=== PATIENT | female | born 1940 | race Caucasian/White ===

== ENCOUNTER 2017-02-12 14:16 | Observation (INO) | payer OTHER ==
[~2017-02-12] VITALS: Ht 162.6 cm; Wt 79.4 kg
[2017-02-12 16:54] LABS: Basophils # (auto) 0.2 uL; Basophils % (auto) 0.9 % (0.0-2.0); Eosinophils # (auto) 0.3 uL; Eosinophils % (auto) 1.3 % (0.0-7.0); Hematocrit 45.2 % (36.0-46.0); Hemoglobin 14.5 g/dL (12.2-16.2); Lymphocytes # (auto) 4.8 uL; Lymphocytes % (auto) 23.4 % (10.0-50.0); Mean Corpuscular Hemoglobin 28.7 pg (28.0-32.0); Mean Corpuscular Hgb Conc. 32.1 g/dL (32.0-36.0); Mean Corpuscular Volume 89.3 fL (80.0-100.0); Mean Platelet Volume 9.1 fL (7.4-10.4); Monocytes # (auto) 1.2 uL; Monocytes % (auto) 5.9 % (0.0-12.0); Neutrophils % (auto) 68.5 % (37.0-80.0); Platelet Count (auto) 291 10^3/uL (140-450); Red Cell Distribution Width 13.6 % (11.6-16.0); SUSPECT VIEW TRANSMISSION; White Blood Cell 20.5 10^3/uL (4.4-10.8)
[2017-02-12 17:21] LABS: Albumin 3.2 g/dL (3.4-5.0); Alkaline Phosphatase 70 U/L (45-117); Anion Gap 11 (5-15); Aspartate Aminotransferase 13 U/L (15-37); BUN/Creatinine Ratio 20.2; Bilirubin, Total 0.6 mg/dL (0.2-1.0); Blood Urea Nitrogen 19 mg/dL (7-18); Calcium 8.4 mg/dL (8.5-10.1); Carbon Dioxide 25 mmol/L (21-32); Chloride 106 mmol/L (98-107); GFR African American 75 mL/min; GFR Non-African American 62 mL/min; Glucose 132 mg/dL (74-106); Magnesium 2.7 mg/dL (1.6-2.6); Potassium 3.3 mmol/L (3.5-5.1); Sodium 142 mmol/L (136-145); Total Protein 6.4 g/dL (6.4-8.2)
[2017-02-12 17:36] LABS: Prothrombin Time 10.8 sec (9.37-12.3)
[2017-02-12 18:17] LABS: Urine Bilirubin Negative (Negative); Urine Blood Negative /uL (Negative); Urine Color Yellow (Yellow); Urine Glucose Normal (Normal); Urine Hyaline Cast FEW /lpf (0 - 2); Urine Ketone Negative (Negative); Urine Mucus FEW (None Seen); Urine Nitrite Negative (Negative); Urine RBC 1 /hpf (0 - 4); Urine Squamous Epithelial Cell FEW /hpf (<5); Urine Urobilinogen Normal (Negative); Urine pH 5.5 (5.0-8.0)
[2017-02-12] MEDS ORDERED: cefTRIAXone 1GM/50ML D5W 50 ML IV ONE (18:30)
[2017-02-12] MEDS ORDERED: AZITHROMYCIN 500MG/D5W 250ML 250 ML IV ONE (18:30)
[2017-02-12] MEDS ORDERED: POTASSIUM CHL 20 Meq TABLET PO ONE (19:00)
[2017-02-12 19:26] LABS: Lactic Acid w/Reflex 3.4 mmol/L (0.4-2.0)
[2017-02-12 20:11] LABS: REFLEX LACTIC ACID YES OR NO YES
[2017-02-12] MEDS ORDERED: SODIUM CHLORIDE 0.9% 1,000 ML IV ONE ×3 (21:30)
[2017-02-12 22:25] VITALS: BP 171/75
== END 2017-02-12 23:05 | disposition short-term general hospital (02) | DRG 312 ==
LOC: ER 14:16 → OVERFLOW 15:41 → ER 23:05
PROVIDERS: ADMIT Family Medicine; ATTEND Family Medicine
DX: R55 Syncope and collapse (principal); J18.1 Lobar pneumonia, unspecified organism; A41.9 Sepsis, unspecified organism; E87.6 Hypokalemia; F32.9 Major depressive disorder, single episode, unspecified; R51 Headache; I10 Essential (primary) hypertension; Z82.49 Family history of ischemic heart disease and other diseases of the circulatory system; Z83.3 Family history of diabetes mellitus
CPT/HCPCS: 36415; 70450; 71010; 80053; 81001; 82962; 83605; 83735; 84484; 85025; 85610; 85730; 87040; 93005; 96365; 96366; 96367; 99291; G0378; J0456; J0696; J7030

== ENCOUNTER 2017-11-18 04:22 | Emergency (ER) | payer OTHER ==
[~2017-11-18] VITALS: Ht 154.9 cm; Wt 82.6 kg
[2017-11-18 04:55] LABS: Basophils # (auto) 0.1 uL; Basophils % (auto) 0.4 % (0.0-2.0); Eosinophils # (auto) 0.1 uL; Eosinophils % (auto) 0.5 % (0.0-7.0); Hematocrit 45.2 % (36.0-46.0); Lymphocytes % (auto) 6.1 % (10.0-50.0); Mean Corpuscular Hemoglobin 30.2 pg (28.0-32.0); Mean Corpuscular Hgb Conc. 33.2 g/dL (32.0-36.0); Mean Corpuscular Volume 90.9 fL (80.0-100.0); Monocytes # (auto) 0.7 uL; Monocytes % (auto) 3.8 % (0.0-12.0); Neutrophils # (auto) 15.4 uL; Neutrophils % (auto) 89.2 % (37.0-80.0); Platelet Count (auto) 340 10^3/uL (140-450); Red Blood Cells 4.97 10^6/uL (4.0-5.20); Red Cell Distribution Width 14.6 % (11.8-14.3); White Blood Cell 17.2 10^3/uL (4.4-10.8)
[2017-11-18 05:14] LABS: Albumin 3.6 g/dL (3.4-5.0); BUN/Creatinine Ratio 16.2; Calcium 8.9 mg/dL (8.5-10.1); Potassium 3.6 mmol/L (3.5-5.1)
[2017-11-18] MEDS ORDERED: SODIUM CHLORIDE 0.9% 1,000 ML IV ONE ×2 (05:15→08:15)
[2017-11-18] MEDS ORDERED: ONDANSETRON HCL 4 MG/2 ML VIAL IV ONE (05:15)
[2017-11-18 05:17] LABS: Bilirubin, Total 0.7 mg/dL (0.2-1.0); Total Protein 7.6 g/dL (6.4-8.2)
[2017-11-18 06:36] LABS: Urine Bacteria NONE SEEN /hpf (None Seen); Urine Blood Negative /uL (Negative); Urine Specific Gravity 1.005 (1.001-1.035); Urine WBC 1 /hpf (0 - 5)
[2017-11-18] MEDS ORDERED: LEVOFLOXACIN 750MG 150 ML IV SCH (07:30)
[2017-11-18] MEDS ORDERED: SODIUM CHLORIDE 0.9% 2,500 ML IV ONE (07:30)
[2017-11-18] MEDS ORDERED: diphenhdrAMINE HCL 50 MG/1 ML VL IV ONE ×2 (09:00)
[2017-11-18] MEDS ORDERED: VANCOMYCIN 1GM/250ML 250 ML IV SCH (10:00)
[2017-11-18 10:06] VITALS: BP 143/62
== END 2017-11-18 10:00 | disposition left against medical advice (07) ==
LOC: ER 04:25
DX: K52.9 Noninfective gastroenteritis and colitis, unspecified (principal); I10 Essential (primary) hypertension; Z83.3 Family history of diabetes mellitus; Z82.49 Family history of ischemic heart disease and other diseases of the circulatory system; Z85.828 Personal history of other malignant neoplasm of skin
CPT/HCPCS: 36415; 74176; 80053; 81001; 85025; 87086; 96361; 96365; 96366; 96368; 96375; 99285; J1200; J1956; J2405; J3370; J7030

== ENCOUNTER 2019-08-05 16:48 | Emergency (ER) | payer OTHER ==
[~2019-08-05] VITALS: Ht 154.9 cm; Wt 77.1 kg
[2019-08-05 17:38] LABS: Basophils # (auto) 0.1 uL; Basophils % (auto) 1.2 % (0.0-2.0); Eosinophils # (auto) 0.9 uL; Eosinophils % (auto) 8.8 % (0.0-7.0); Hematocrit 35.5 % (36.0-46.0); Lymphocytes # (auto) 0.7 uL; Lymphocytes % (auto) 7.4 % (10.0-50.0); Mean Corpuscular Hemoglobin 28.9 pg (28.0-32.0); Mean Corpuscular Hgb Conc. 33.8 g/dL (32.0-36.0); Mean Corpuscular Volume 85.6 fL (80.0-100.0); Monocytes # (auto) 0.8 uL; Monocytes % (auto) 7.8 % (0.0-12.0); Neutrophils # (auto) 7.5 uL; Neutrophils % (auto) 74.8 % (37.0-80.0); Platelet Count (auto) 341 10^3/uL (140-450); Red Blood Cells 4.15 10^6/uL (4.0-5.20); Red Cell Distribution Width 14.5 % (11.8-14.3); White Blood Cell 10.1 10^3/uL (4.4-10.8)
[2019-08-05 17:55] LABS: Albumin 3.1 g/dL (3.4-5.0); Anion Gap 6 (5-15); Calcium 8.3 mg/dL (8.5-10.1); Carbon Dioxide 28 mmol/L (21-32); Chloride 103 mmol/L (98-107); Glucose 116 mg/dL (74-106); Potassium 3.9 mmol/L (3.5-5.1); Sodium 137 mmol/L (136-145)
[2019-08-05 17:58] LABS: Alanine Aminotransferase 20 U/L (13-56); Aspartate Aminotransferase 16 U/L (15-37); BUN/Creatinine Ratio 11.1; Bilirubin, Total 0.5 mg/dL (0.2-1.0); Blood Urea Nitrogen 9 mg/dL (7-18); GFR African American 88 mL/min; GFR Non-African American 73 mL/min; Total Protein 6.7 g/dL (6.4-8.2)
[2019-08-05 18:00] LABS: Alkaline Phosphatase 104 U/L (45-117)
[2019-08-05 19:03] LABS: Urine Bacteria NONE SEEN /hpf (None Seen); Urine Blood Negative /uL (Negative); Urine Specific Gravity 1.015 (1.001-1.035); Urine WBC 3 /hpf (0 - 5)
[2019-08-05] MEDS ORDERED: FUROSEMIDE 20 MG/2 ML VIAL IV ONE (19:15)
[2019-08-05] MEDS ORDERED: cefTRIAXone 1GM/50ML D5W 50 ML IV ONE (20:15)
[2019-08-05 20:32] LABS: INR 1.1 (0.9-1.15); Partial Thromboplastin Time 32.5 sec (23.64-32.05)
[2019-08-05] MEDS ORDERED: APIX5TAB PO (21:33)
[2019-08-05] MEDS ORDERED: METO1TAB9 PO (21:33)
[2019-08-05] MEDS ORDERED: TRAM50TA2 PO (21:33)
[2019-08-05] MEDS ORDERED: ATOR20TA50 PO (21:33)
[2019-08-05] MEDS ORDERED: VENL37.572 PO (21:33)
[2019-08-05] MEDS ORDERED: BUME1TAB3 PO (21:33)
[2019-08-05] MEDS ORDERED: AMIO200T33 PO (21:33)
[2019-08-05 22:46] VITALS: BP 139/75
== END 2019-08-06 01:09 | disposition short-term general hospital (02) ==
LOC: ER 16:48
DX: R06.00 Dyspnea, unspecified (principal); I11.0 Hypertensive heart disease with heart failure; I50.9 Heart failure, unspecified; N39.0 Urinary tract infection, site not specified
CPT/HCPCS: 36415; 71045; 80053; 81001; 83880; 84484; 85025; 85379; 85610; 85730; 87086; 93005; 93970; 94761; 96365; 96375; 99285; J0696; J1940

== ENCOUNTER 2022-08-14 19:35 | Inpatient (IN) | payer OTHER ==
[~2022-08-14] VITALS: Ht 157.5 cm; Wt 81.9 kg
[~2022-08-14 19:35] MED LIST: AMIO200T33 PO; APIX5TAB PO; ATOR20TA50 PO; BUME1TAB3 PO; METO1TAB9 PO; TRAM50TA2 PO; VENL37.572 PO
[2022-08-14 20:19] LABS: Basophils # (auto) 0.1 10 ^3/uL (0-0.2); Eosinophils # (auto) 0.3 10 ^3/uL (0-0.8); Eosinophils % (auto) 5.1 % (0.0-7.0); Hematocrit 37.6 % (36.0-46.0); Hemoglobin 11.8 g/dL (12.2-16.2); Lymphocytes # (auto) 1.4 10 ^3/uL (0.4-5.4); Lymphocytes % (auto) 21.5 % (10.0-50.0); Mean Corpuscular Hemoglobin 27.2 pg (28.0-32.0); Mean Corpuscular Hgb Conc. 31.4 g/dL (32.0-36.0); Mean Corpuscular Volume 86.5 fL (80.0-100.0); Monocytes % (auto) 15.1 % (0.0-12.0); Neutrophils # (auto) 3.7 10 ^3/uL (1.6-8.6); Neutrophils % (auto) 57.3 % (37.0-80.0); Nucleated Red Blood Cells % 0.2 %; Red Blood Cells 4.35 10^6/uL (4.0-5.20); Red Cell Distribution Width 15.9 % (11.8-14.3); White Blood Cell 6.5 10^3/uL (4.4-10.8)
[2022-08-14 20:38] LABS: Albumin 3.1 g/dL (3.4-5.0); Calcium 8.5 mg/dL (8.5-10.1)
[2022-08-14 20:41] LABS: Bilirubin, Total 1.2 mg/dL (0.2-1.0); Total Protein 6.2 g/dL (6.4-8.2)
[2022-08-14] MEDS ORDERED: dilTIAZem 25 MG/5 ML VIAL IV ONE (20:45)
[2022-08-14] MEDS ORDERED: SODIUM CHLORIDE 0.9% 500 ML IV ONE (20:45)
[2022-08-14] MEDS ORDERED: FUROSEMIDE 40 MG/4 ML VIAL IV ONE (21:00)
[2022-08-14] MEDS ORDERED: dilTIAZem HCL 180MG ER CAP PO ONE (22:15)
[2022-08-14 22:49] LABS: Urine Bacteria FEW /hpf (None Seen); Urine Blood Negative /uL (Negative); Urine Hyaline Cast MOD /lpf (0 - 2); Urine Mucus FEW (None Seen); Urine Specific Gravity 1.011 (1.001-1.035); Urine WBC <1 /hpf (0 - 5)
[2022-08-15] VITALS (55 sets, daily range): BP systolic 98–145; BP diastolic 38–76
[2022-08-15] MEDS ORDERED: dilTIAZem 125mg/125ml BAG KIT 125 ML IV ONE (01:00)
[2022-08-15] MEDS ORDERED: ONDANSETRON HCL 4 MG/2 ML VIAL IV PRN (01:45)
[2022-08-15] MEDS ORDERED: ACETAMINOPHEN 325 MG TAB PO PRN (01:45)
[2022-08-15] MEDS ORDERED: NITROGLYCERIN 0.4 MG SL TAB SL PRN (01:45)
[2022-08-15] MEDS ORDERED: MORPHINE SULFATE INJ 2 MG/ml SYRG IV PRN (01:45)
[2022-08-15] MEDS: dilTIAZem 125mg/125ml BAG KIT 100 ML IV SCH ×2 (01:50→10:47)
[2022-08-15] MEDS: FUROSEMIDE 20 MG/2 ML VIAL IV SCH ×2 (06:04→17:06)
[2022-08-15] MEDS ORDERED: DABIGATRAN 75 MG CAP PO SCH (10:00)
[2022-08-15] MEDS ORDERED: PANTOPRAZOLE 40 MG TAB PO SCH (10:00)
[2022-08-15] MEDS ORDERED: APIXABAN 5 MG TAB PO SCH (10:00)
[2022-08-15] MEDS ORDERED: ISOSORBIDE MONONITRATE ER 60 MG TAB PO SCH (10:00)
[2022-08-15] MEDS ORDERED: dilTIAZem HCL 180MG ER CAP PO SCH (10:00)
[2022-08-15] MEDS: HYDROcodone-ACET 5/325MG TAB PO PRN ×2 (10:15→18:56)
[2022-08-15] MEDS ORDERED: AMIODARONE HCL 200 MG TAB PO ONE (14:00)
[2022-08-15] MEDS ORDERED: VENLAFAXINE HCL 37.5mg XR cap PO ONE (14:00)
[2022-08-15] MEDS ORDERED: METOPROLOL TARTRATE 50 MG TAB PO ONE (14:00)
[2022-08-15] MEDS ORDERED: DILT60TA PO (15:44)
[2022-08-15] MEDS ORDERED: ISOS1TAB28 PO (15:56)
[2022-08-15] MEDS ORDERED: BISO1TAB17 PO (15:56)
[2022-08-15] MEDS ORDERED: TORS10TA12 PO (15:56)
[2022-08-15] MEDS ORDERED: TEMA15CA2 PO (15:56)
[2022-08-15] MEDS ORDERED: POTA10TA51 PO (15:56)
[2022-08-15] MEDS ORDERED: HYDR1TAB97 PO (15:56)
[2022-08-15] MEDS ORDERED: VENL1TAB97 PO (15:56)
[2022-08-15] MEDS ORDERED: DABI150C5 PO (15:56)
[2022-08-15] MEDS: ATORVASTATIN 20 MG TAB PO SCH (21:51)
[2022-08-15] MEDS: AMIODARONE HCL 200 MG TAB PO SCH (21:51)
[2022-08-15] MEDS: APIXABAN 5 MG TAB PO SCH (21:51)
[2022-08-15] MEDS: TEMAZEPAM 15 MG CAP PO PRN (21:53)
[2022-08-15] MEDS ORDERED: ATORVASTATIN 20 MG TAB PO SCH (22:00)
[2022-08-16] VITALS (39 sets, daily range): BP systolic 97–134; BP diastolic 48–81
[2022-08-16] MEDS: METOPROLOL TARTRATE 50 MG TAB PO SCH ×3 (01:02→22:21)
[2022-08-16 04:12] LABS: Albumin 2.5 g/dL (3.4-5.0); Potassium 3.2 mmol/L (3.5-5.1)
[2022-08-16 04:14] LABS: BUN/Creatinine Ratio 14.9
[2022-08-16 04:21] LABS: Basophils # (auto) 0 10 ^3/uL (0-0.2); Basophils % (auto) 0.6 % (0.0-2.0); Eosinophils # (auto) 0.6 10 ^3/uL (0-0.8); Eosinophils % (auto) 8.6 % (0.0-7.0); Hematocrit 33.1 % (36.0-46.0); Hemoglobin 10.9 g/dL (12.2-16.2); Lymphocytes # (auto) 1.3 10 ^3/uL (0.4-5.4); Mean Corpuscular Hemoglobin 27.9 pg (28.0-32.0); Mean Corpuscular Hgb Conc. 32.8 g/dL (32.0-36.0); Monocytes # (auto) 1.1 10 ^3/uL (0-1.3); Monocytes % (auto) 15.6 % (0.0-12.0); Neutrophils % (auto) 56.2 % (37.0-80.0); Nucleated Red Blood Cells % 0.1 %; Red Blood Cells 3.89 10^6/uL (4.0-5.20); Red Cell Distribution Width 15.5 % (11.8-14.3)
[2022-08-16 04:26] LABS: Total Protein 5.2 g/dL (6.4-8.2)
[2022-08-16] MEDS: FUROSEMIDE 20 MG/2 ML VIAL IV SCH (06:33)
[2022-08-16] MEDS: VENLAFAXINE HCL 37.5mg XR cap PO SCH (09:00)
[2022-08-16] MEDS: AMIODARONE HCL 200 MG TAB PO SCH ×2 (09:01→22:20)
[2022-08-16] MEDS: APIXABAN 5 MG TAB PO SCH (09:02)
[2022-08-16] MEDS: HYDROcodone-ACET 5/325MG TAB PO PRN ×2 (10:50→20:10)
[2022-08-16] MEDS ORDERED: POTASSIUM CHL 20 Meq TABLET PO ONE (15:00)
[2022-08-16] MEDS ORDERED: METOPROLOL TARTRATE 50 MG TAB PO ONE (15:00)
[2022-08-16] MEDS: DABIGATRAN 75 MG CAP PO SCH (22:18)
[2022-08-16] MEDS: TEMAZEPAM 15 MG CAP PO PRN (22:19)
[2022-08-16] MEDS: ATORVASTATIN 20 MG TAB PO SCH (22:19)
[2022-08-17 05:00] VITALS: BP 129/73
[2022-08-17] MEDS: HYDROcodone-ACET 5/325MG TAB PO PRN ×2 (06:04→14:16)
[2022-08-17 06:37] LABS: Basophils # (auto) 0.1 10 ^3/uL (0-0.2); Basophils % (auto) 0.6 % (0.0-2.0); Eosinophils # (auto) 0.7 10 ^3/uL (0-0.8); Eosinophils % (auto) 7.3 % (0.0-7.0); Hematocrit 37.3 % (36.0-46.0); Hemoglobin 12.2 g/dL (12.2-16.2); Lymphocytes # (auto) 1.5 10 ^3/uL (0.4-5.4); Lymphocytes % (auto) 15.5 % (10.0-50.0); Mean Corpuscular Hgb Conc. 32.7 g/dL (32.0-36.0); Mean Corpuscular Volume 85.6 fL (80.0-100.0); Monocytes # (auto) 1.2 10 ^3/uL (0-1.3); Monocytes % (auto) 12.3 % (0.0-12.0); Neutrophils # (auto) 6.1 10 ^3/uL (1.6-8.6); Neutrophils % (auto) 64.3 % (37.0-80.0); Red Blood Cells 4.35 10^6/uL (4.0-5.20); Red Cell Distribution Width 15.4 % (11.8-14.3); White Blood Cell 9.5 10^3/uL (4.4-10.8)
[2022-08-17 06:44] LABS: Calcium 8.6 mg/dL (8.5-10.1); Potassium 3.2 mmol/L (3.5-5.1)
[2022-08-17 07:00] LABS: BUN/Creatinine Ratio 16.4
[2022-08-17 09:00] VITALS: BP 109/52
[2022-08-17] MEDS: TORSEMIDE 20 MG TAB PO SCH (10:23)
[2022-08-17] MEDS: AMIODARONE HCL 200 MG TAB PO SCH (10:24)
[2022-08-17] MEDS: POTASSIUM CHL 20 Meq TABLET PO SCH (10:24)
[2022-08-17] MEDS: VENLAFAXINE HCL 37.5mg XR cap PO SCH (10:24)
[2022-08-17] MEDS: DABIGATRAN 75 MG CAP PO SCH ×2 (10:26→22:12)
[2022-08-17] MEDS: METOPROLOL TARTRATE 50 MG TAB PO SCH ×2 (10:26→22:11)
[2022-08-17 13:00] VITALS: BP 122/82
[2022-08-17] MEDS ORDERED: POTASSIUM CHL 20 Meq TABLET PO ONE (13:00)
[2022-08-17 17:00] VITALS: BP 113/42
[2022-08-17] MEDS ORDERED: AMIODARONE HCL 200 MG TAB PO ONE ×2 (18:45→20:45)
[2022-08-17] MEDS: ATORVASTATIN 20 MG TAB PO SCH (22:09)
[2022-08-17] MEDS: TEMAZEPAM 15 MG CAP PO PRN (22:12)
[2022-08-18 00:20] VITALS: BP 130/68
[2022-08-18] MEDS: HYDROcodone-ACET 5/325MG TAB PO PRN ×3 (00:39→18:55)
[2022-08-18] MEDS ORDERED: MORPHINE SULFATE INJ 2 MG/ml SYRG IV ONE (02:30)
[2022-08-18 05:44] VITALS: BP 106/58
[2022-08-18 08:30] VITALS: BP 122/47
[2022-08-18 09:39] VITALS: BP 122/47
[2022-08-18] MEDS ORDERED: AMIODARONE HCL 200 MG TAB PO SCH (10:00)
[2022-08-18] MEDS: VENLAFAXINE HCL 37.5mg XR cap PO SCH (10:11)
[2022-08-18] MEDS: POTASSIUM CHL 20 Meq TABLET PO SCH (10:11)
[2022-08-18] MEDS: TORSEMIDE 20 MG TAB PO SCH (10:59)
[2022-08-18] MEDS: DABIGATRAN 75 MG CAP PO SCH ×3 (10:59→23:48)
[2022-08-18] MEDS ORDERED: dilTIAZem 120MG ER CAP PO ONE (12:00)
[2022-08-18 12:50] VITALS: BP 97/47
[2022-08-18] MEDS: METOPROLOL TARTRATE 50 MG TAB PO SCH (12:52)
[2022-08-18 16:58] LABS: Urine Bacteria FEW /hpf (None Seen); Urine Blood Negative /uL (Negative); Urine Hyaline Cast FEW /lpf (0 - 2); Urine Specific Gravity 1.009 (1.001-1.035); Urine WBC 51 /hpf (0 - 5)
[2022-08-18 17:00] VITALS: BP 111/63
[2022-08-18] MEDS: MAGNESIUM OXIDE 400 MG TAB PO SCH (22:32)
[2022-08-18] MEDS: SOTALOL HCL 80 MG TAB PO SCH (22:32)
[2022-08-18] MEDS: ATORVASTATIN 20 MG TAB PO SCH (22:33)
[2022-08-18] MEDS: TEMAZEPAM 15 MG CAP PO PRN (22:33)
[2022-08-18] MEDS: DABIGATRAN 75 MG CAP PO ONE ×2 (22:49→23:01)
[2022-08-19 00:14] VITALS: BP 102/54
[2022-08-19 06:00] VITALS: BP 114/45
[2022-08-19 06:35] LABS: BUN/Creatinine Ratio 19.4; Calcium 8.6 mg/dL (8.5-10.1); Potassium 3.7 mmol/L (3.5-5.1)
[2022-08-19 09:20] VITALS: BP 123/55
[2022-08-19] MEDS: VENLAFAXINE HCL 37.5mg XR cap PO SCH (11:02)
[2022-08-19] MEDS: DABIGATRAN 75 MG CAP PO SCH ×2 (11:03→21:17)
[2022-08-19] MEDS: HYDROcodone-ACET 5/325MG TAB PO PRN ×2 (11:04→18:44)
[2022-08-19] MEDS: SOTALOL HCL 80 MG TAB PO SCH ×2 (11:05→21:18)
[2022-08-19] MEDS: POTASSIUM CHL 20 Meq TABLET PO SCH (11:06)
[2022-08-19] MEDS: dilTIAZem 120MG ER CAP PO SCH (11:07)
[2022-08-19] MEDS: TORSEMIDE 20 MG TAB PO SCH (11:09)
[2022-08-19] MEDS: MAGNESIUM OXIDE 400 MG TAB PO SCH ×2 (11:10→21:19)
[2022-08-19 13:00] VITALS: BP 108/50
[2022-08-19] MEDS: cefTRIAXone 1GM/50ML D5W 50 ML IV SCH (15:08)
[2022-08-19 16:30] VITALS: BP 116/68
[2022-08-19] MEDS: TEMAZEPAM 15 MG CAP PO PRN (21:19)
[2022-08-19] MEDS: ATORVASTATIN 20 MG TAB PO SCH (21:19)
[2022-08-19 22:01] VITALS: BP 109/54
[2022-08-20] MEDS: HYDROcodone-ACET 5/325MG TAB PO PRN ×2 (03:47→14:08)
[2022-08-20 05:00] VITALS: BP 130/89
[2022-08-20 08:00] VITALS: BP 115/71
[2022-08-20] MEDS: cefTRIAXone 1GM/50ML D5W 50 ML IV SCH (09:29)
[2022-08-20] MEDS: SOTALOL HCL 80 MG TAB PO SCH ×3 (09:30→21:22)
[2022-08-20] MEDS: TORSEMIDE 20 MG TAB PO SCH (09:31)
[2022-08-20] MEDS: dilTIAZem 120MG ER CAP PO SCH (09:31)
[2022-08-20] MEDS: POTASSIUM CHL 20 Meq TABLET PO SCH (09:32)
[2022-08-20] MEDS: VENLAFAXINE HCL 37.5mg XR cap PO SCH (09:32)
[2022-08-20] MEDS: MAGNESIUM OXIDE 400 MG TAB PO SCH ×2 (09:34→21:23)
[2022-08-20] MEDS: DABIGATRAN 75 MG CAP PO SCH ×2 (09:35→21:24)
[2022-08-20 12:00] VITALS: BP 107/64
[2022-08-20] MEDS ORDERED: DOCUSATE SOD 100 MG CAP PO ONE (12:30)
[2022-08-20] MEDS ORDERED: SODIUM CHLORIDE 0.9% 500 ML IV ONE (14:40)
[2022-08-20 16:00] VITALS: BP 110/64
[2022-08-20] MEDS: ATORVASTATIN 20 MG TAB PO SCH (21:23)
[2022-08-20] MEDS: TEMAZEPAM 15 MG CAP PO PRN (21:39)
[2022-08-20 22:00] VITALS: BP 117/73
[2022-08-21] MEDS: HYDROcodone-ACET 5/325MG TAB PO PRN ×3 (00:07→16:28)
[2022-08-21 05:00] VITALS: BP 116/67
[2022-08-21 06:08] LABS: BUN/Creatinine Ratio 24.2; Calcium 8.2 mg/dL (8.5-10.1); Potassium 3.6 mmol/L (3.5-5.1)
[2022-08-21 08:00] VITALS: BP 120/58
[2022-08-21] MEDS: cefTRIAXone 1GM/50ML D5W 50 ML IV SCH (09:05)
[2022-08-21] MEDS: POTASSIUM CHL 20 Meq TABLET PO SCH (09:06)
[2022-08-21] MEDS: VENLAFAXINE HCL 37.5mg XR cap PO SCH (09:07)
[2022-08-21] MEDS: dilTIAZem 120MG ER CAP PO SCH (09:10)
[2022-08-21] MEDS: MAGNESIUM OXIDE 400 MG TAB PO SCH ×2 (09:54→21:44)
[2022-08-21] MEDS: SOTALOL HCL 80 MG TAB PO SCH ×2 (09:55→21:46)
[2022-08-21] MEDS: TORSEMIDE 20 MG TAB PO SCH (10:00)
[2022-08-21] MEDS: DABIGATRAN 75 MG CAP PO SCH ×2 (10:58→21:44)
[2022-08-21 12:00] VITALS: BP 103/62
[2022-08-21] MEDS: CALCIUM CARB 500 MG CHEW TAB PO PRN (13:15)
[2022-08-21 16:00] VITALS: BP_SYST 143; BP_SYST 90; BP_DIAS 40; BP_DIAS 66
[2022-08-21] MEDS: TEMAZEPAM 15 MG CAP PO PRN (21:44)
[2022-08-21] MEDS: ATORVASTATIN 20 MG TAB PO SCH (21:44)
[2022-08-21 22:00] VITALS: BP 109/72
[2022-08-22 05:00] VITALS: BP 117/52
[2022-08-22 08:10] VITALS: BP 127/72
[2022-08-22] MEDS: cefTRIAXone 1GM/50ML D5W 50 ML IV SCH (09:27)
[2022-08-22] MEDS: SOTALOL HCL 80 MG TAB PO SCH ×2 (09:29→21:41)
[2022-08-22] MEDS: POTASSIUM CHL 20 Meq TABLET PO SCH (09:30)
[2022-08-22] MEDS: dilTIAZem 120MG ER CAP PO SCH ×2 (09:32→21:40)
[2022-08-22] MEDS: TORSEMIDE 20 MG TAB PO SCH (09:32)
[2022-08-22] MEDS: VENLAFAXINE HCL 37.5mg XR cap PO SCH (09:32)
[2022-08-22] MEDS: MAGNESIUM OXIDE 400 MG TAB PO SCH ×2 (09:33→21:40)
[2022-08-22] MEDS: DABIGATRAN 75 MG CAP PO SCH ×2 (09:33→21:42)
[2022-08-22] MEDS ORDERED: DOCUSATE SOD 100 MG CAP PO ONE (11:45)
[2022-08-22 12:10] VITALS: BP 124/81
[2022-08-22] MEDS: HYDROcodone-ACET 5/325MG TAB PO PRN ×2 (13:52→23:13)
[2022-08-22] MEDS: LACTULOSE 20Gm/30ML SOLN PO ONE (15:11)
[2022-08-22 16:10] VITALS: BP 117/60
[2022-08-22] MEDS: ATORVASTATIN 20 MG TAB PO SCH (21:40)
[2022-08-22] MEDS: TEMAZEPAM 15 MG CAP PO PRN (21:41)
[2022-08-22 21:56] VITALS: BP 134/74
[2022-08-22] MEDS: CALCIUM CARB 500 MG CHEW TAB PO PRN (23:14)
[2022-08-23 04:41] VITALS: BP 123/56
[2022-08-23] MEDS: cefTRIAXone 1GM/50ML D5W 50 ML IV SCH (08:30)
[2022-08-23] MEDS: VENLAFAXINE HCL 37.5mg XR cap PO SCH (08:31)
[2022-08-23] MEDS: MAGNESIUM OXIDE 400 MG TAB PO SCH ×2 (08:31→21:35)
[2022-08-23] MEDS: POTASSIUM CHL 20 Meq TABLET PO SCH (08:33)
[2022-08-23] MEDS: dilTIAZem 120MG ER CAP PO SCH ×2 (08:33→21:35)
[2022-08-23] MEDS: SOTALOL HCL 80 MG TAB PO SCH ×2 (08:34→21:34)
[2022-08-23 08:47] VITALS: BP 133/68
[2022-08-23] MEDS: TORSEMIDE 20 MG TAB PO SCH (08:52)
[2022-08-23] MEDS: DABIGATRAN 75 MG CAP PO SCH ×2 (08:53→21:33)
[2022-08-23 13:10] VITALS: BP 143/59
[2022-08-23] MEDS: SILDENAFIL CITRATE 20 MG TAB PO SCH ×2 (13:49→20:43)
[2022-08-23] MEDS: HYDROcodone-ACET 5/325MG TAB PO PRN (16:05)
[2022-08-23 17:39] VITALS: BP 103/61
[2022-08-23] MEDS: TEMAZEPAM 15 MG CAP PO PRN (21:33)
[2022-08-23] MEDS: ATORVASTATIN 20 MG TAB PO SCH (21:34)
[2022-08-23] MEDS: CALCIUM CARB 500 MG CHEW TAB PO PRN (21:52)
[2022-08-24] MEDS: HYDROcodone-ACET 5/325MG TAB PO PRN ×2 (01:13→11:52)
[2022-08-24 05:15] VITALS: BP 102/46
[2022-08-24] MEDS: DABIGATRAN 75 MG CAP PO SCH (09:34)
[2022-08-24] MEDS: cefTRIAXone 1GM/50ML D5W 50 ML IV SCH (09:34)
[2022-08-24] MEDS: dilTIAZem 120MG ER CAP PO SCH (09:35)
[2022-08-24] MEDS: VENLAFAXINE HCL 37.5mg XR cap PO SCH (09:36)
[2022-08-24] MEDS: POTASSIUM CHL 20 Meq TABLET PO SCH (09:36)
[2022-08-24] MEDS: SILDENAFIL CITRATE 20 MG TAB PO SCH ×2 (09:36→14:00)
[2022-08-24] MEDS: TORSEMIDE 20 MG TAB PO SCH (09:36)
[2022-08-24] MEDS: MAGNESIUM OXIDE 400 MG TAB PO SCH (09:36)
[2022-08-24] MEDS: SOTALOL HCL 80 MG TAB PO SCH (09:36)
[2022-08-24 09:46] VITALS: BP 114/55
[2022-08-24] MEDS ORDERED: SILD20TA PO (11:44)
[2022-08-24] MEDS ORDERED: SOTA80TA20 PO (11:44)
[2022-08-24 15:12] VITALS: BP 114/55
== END 2022-08-24 16:10 | disposition home or self-care (01) | DRG 291 ==
LOC: ER 19:36 → ICU WEST 08-15 01:43 → TELE-WESTW 08-15 03:10
PROVIDERS: ADMIT Nurse Practitioner; ATTEND Internal Medicine
DX: I11.0 Hypertensive heart disease with heart failure (principal); I50.43 Acute on chronic combined systolic (congestive) and diastolic (congestive) heart failure; J96.00 Acute respiratory failure, unspecified whether with hypoxia or hypercapnia; D68.69 Other thrombophilia; N39.0 Urinary tract infection, site not specified; I48.0 Paroxysmal atrial fibrillation; E66.9 Obesity, unspecified; I27.21 Secondary pulmonary arterial hypertension; F32.A Depression, unspecified; E78.5 Hyperlipidemia, unspecified; E87.6 Hypokalemia; Z20.822 Contact with and (suspected) exposure to COVID-19; I25.10 Atherosclerotic heart disease of native coronary artery without angina pectoris; I27.20 Pulmonary hypertension, unspecified; Z68.32 Body mass index [BMI] 32.0-32.9, adult; Z88.0 Allergy status to penicillin; Z88.8 Allergy status to other drugs, medicaments and biological substances
CPT/HCPCS: 36415; 71045; 80048; 80053; 81001; 83880; 84484; 85025; 87081; 87426; 93005; 93306; 93970; 96365; 96375; 97110; 97116; 97163; 97530; 99291; G0378; J0696

== ENCOUNTER 2023-02-25 19:49 | Emergency (ER) | payer OTHER ==
[~2023-02-25] VITALS: Ht 154.9 cm; Wt 75.0 kg
[~2023-02-25 19:49] MED LIST changes: -AMIO200T33 PO; -APIX5TAB PO; -BUME1TAB3 PO; +DABI150C5 PO; +DILT60TA PO; +ISOS1TAB28 PO; -METO1TAB9 PO; +POTA10TA51 PO; +SILD20TA PO; +SOTA80TA20 PO; +TEMA15CA2 PO; +TORS10TA12 PO; +VENL1TAB97 PO
[2023-02-25 21:23] LABS: Basophils # (auto) 0.1 10 ^3/uL (0-0.2); Basophils % (auto) 0.6 % (0.0-2.0); Eosinophils # (auto) 0.1 10 ^3/uL (0-0.8); Eosinophils % (auto) 0.5 % (0.0-7.0); Hematocrit 38.2 % (36.0-46.0); Lymphocytes # (auto) 1.6 10 ^3/uL (0.4-5.4); Lymphocytes % (auto) 13.5 % (10.0-50.0); Mean Corpuscular Hemoglobin 30.8 pg (28.0-32.0); Mean Corpuscular Hgb Conc. 33.9 g/dL (32.0-36.0); Mean Corpuscular Volume 90.8 fL (80.0-100.0); Monocytes # (auto) 0.9 10 ^3/uL (0-1.3); Monocytes % (auto) 7.6 % (0.0-12.0); Neutrophils % (auto) 77.8 % (37.0-80.0); Nucleated Red Blood Cells % 0.2 %; Red Blood Cells 4.21 10^6/uL (4.0-5.20); Red Cell Distribution Width 15.4 % (11.8-14.3); White Blood Cell 11.6 10^3/uL (4.4-10.8)
[2023-02-25 21:33] LABS: INR 1.27 (0.9-1.15); Partial Thromboplastin Time 42.3 sec (24.6-33.4)
[2023-02-25 22:03] LABS: BUN/Creatinine Ratio 28.2 (10.0-20.0); Potassium 3.6 mmol/L (3.5-5.1)
[2023-02-25 22:04] LABS: Albumin 2.8 g/dL (3.4-5.0); Bilirubin, Total 0.5 mg/dL (0.2-1.0); Calcium 8.4 mg/dL (8.5-10.1); Magnesium 2.2 mg/dL (1.6-2.6)
[2023-02-26] MEDS ORDERED: HYDROcodone-ACET 5/325MG TAB PO ONE (04:30)
[2023-02-26 04:53] VITALS: BP 135/78
== END 2023-02-26 06:22 | disposition home or self-care (01) ==
LOC: EDBD 19:49 → ER 19:49
DX: I11.0 Hypertensive heart disease with heart failure (principal); I50.9 Heart failure, unspecified; R60.0 Localized edema; I48.91 Unspecified atrial fibrillation; I25.10 Atherosclerotic heart disease of native coronary artery without angina pectoris; E78.5 Hyperlipidemia, unspecified; Z88.8 Allergy status to other drugs, medicaments and biological substances; Z88.0 Allergy status to penicillin
CPT/HCPCS: 36415; 71045; 80053; 83735; 83880; 84484; 85025; 85379; 85610; 85730; 93005; 93970

== ENCOUNTER 2023-06-03 13:40 | Emergency (ER) | payer OTHER ==
[~2023-06-03] VITALS: Ht 157.5 cm; Wt 87.0 kg
[2023-06-03 14:12] LABS: Basophils # (auto) 0.1 10 ^3/uL (0-0.2); Mean Corpuscular Volume 88.1 fL (80.0-100.0); Monocytes # (auto) 0.9 10 ^3/uL (0-1.3); Neutrophils # (auto) 5.2 10 ^3/uL (1.6-8.6)
[2023-06-03 14:14] LABS: Eosinophils # (auto) 0.2 10 ^3/uL (0-0.8); Eosinophils % (auto) 2.8 % (0.0-7.0); Hematocrit 38.4 % (36.0-46.0); Lymphocytes # (auto) 1.8 10 ^3/uL (0.4-5.4); Mean Corpuscular Hemoglobin 27.6 pg (28.0-32.0); Mean Corpuscular Hgb Conc. 31.4 g/dL (32.0-36.0); Monocytes % (auto) 11.2 % (0.0-12.0); Red Blood Cells 4.36 10^6/uL (4.0-5.20); White Blood Cell 8.2 10^3/uL (4.4-10.8)
[2023-06-03 14:49] LABS: Calcium 8.4 mg/dL (8.5-10.1); Potassium 4.2 mmol/L (3.5-5.1)
[2023-06-03 14:53] LABS: BUN/Creatinine Ratio 8.6 (10.0-20.0); Bilirubin, Total 0.7 mg/dL (0.2-1.0); Total Protein 6.2 g/dL (6.4-8.2)
[2023-06-03 17:45] VITALS: BP 134/88; PULSE 98; RESP 18; TEMP 98.2; O2SAT 96
== END 2023-06-03 18:17 | disposition home or self-care (01) ==
LOC: ER 13:40
DX: R60.0 Localized edema (principal); I48.91 Unspecified atrial fibrillation; I11.0 Hypertensive heart disease with heart failure; I50.9 Heart failure, unspecified; I25.10 Atherosclerotic heart disease of native coronary artery without angina pectoris; E78.5 Hyperlipidemia, unspecified; Z79.899 Other long term (current) drug therapy; Z88.0 Allergy status to penicillin; Z88.8 Allergy status to other drugs, medicaments and biological substances
CPT/HCPCS: 36415; 71045; 80053; 83880; 84484; 85025; 93005

== ENCOUNTER 2024-02-21 17:31 | Inpatient (IN) | payer OTHER ==
[~2024-02-21] VITALS: Ht 154.9 cm; Wt 81.3 kg
[~2024-02-21 17:31] MED LIST changes: +DOXY100C4 PO; +POTA-36 PO; -POTA10TA51 PO; +PRED20TA2 PO
[2024-02-21] MEDS: dilTIAZem 25 MG/5 ML VIAL IV ONE ×3 (19:14→22:13)
[2024-02-21 19:39] LABS: Basophils # (auto) 0 10 ^3/uL (0-0.2); Basophils % (auto) 0.1 % (0.0-2.0); Eosinophils # (auto) 0 10 ^3/uL (0-0.8); Hematocrit 51.4 % (36.0-46.0); Hemoglobin 16.7 g/dL (12.2-16.2); Lymphocytes # (auto) 0.9 10 ^3/uL (0.4-5.4); Mean Corpuscular Hemoglobin 32.2 pg (28.0-32.0); Mean Corpuscular Hgb Conc. 32.5 g/dL (32.0-36.0); Mean Corpuscular Volume 99.1 fL (80.0-100.0); Monocytes # (auto) 1.4 10 ^3/uL (0-1.3); Monocytes % (auto) 6.2 % (0.0-12.0); Neutrophils # (auto) 20.7 10 ^3/uL (1.6-8.6); Neutrophils % (auto) 89.7 % (37.0-80.0); Nucleated Red Blood Cells % 0.1 %; Red Blood Cells 5.18 10^6/uL (4.0-5.20); Red Cell Distribution Width 15.2 % (11.8-14.3)
[2024-02-21] MEDS: SODIUM CHLORIDE 0.9% 1,000 ML IV ONE (19:42)
[2024-02-21 19:58] LABS: Lactic Acid w/Reflex 2.8 mmol/L (0.4-2.0)
[2024-02-21 20:07] LABS: Alanine Aminotransferase 24 U/L (7-40); Albumin 3.4 g/dL (3.2-4.8); Alkaline Phosphatase 122 U/L (46-116); Anion Gap 13 (5-15); Aspartate Aminotransferase 21 U/L (13-40); BUN/Creatinine Ratio 22.4 (10.0-20.0); Blood Urea Nitrogen 22 mg/dL (9-23); Calcium 8.6 mg/dL (8.7-10.4); Carbon Dioxide 22 mmol/L (20-30); Chloride 103 mmol/L (98-107); Glucose 248 mg/dL (74-106); Sodium 138 mmol/L (136-145)
[2024-02-21 20:08] LABS: Bilirubin, Total 1.3 mg/dL (0.2-1.0); Total Protein 5.3 g/dL (5.7-8.2)
[2024-02-21 20:54] VITALS: PULSE 108; RESP 21; O2SAT 96
[2024-02-21] MEDS: levoFLOXacin 750MG 150 ML IV ONE (22:47)
[2024-02-21] MEDS: methylPREDNISolone SOD SUCC 125 MG/2 ML VL IV ONE (23:43)
[2024-02-21] MEDS: diphenhdrAMINE HCL 50 MG/1 ML VL IV ONE (23:44)
[2024-02-21] MEDS: dilTIAZem 125mg/125ml BAG KIT 125 ML IV ONE (23:45)
[2024-02-22] MEDS: SODIUM CHLORIDE 0.9% 500 ML IV ONE (00:42)
[2024-02-22] MEDS: AMIODARONE 450mg/250ml AE 250 ML IV SCH (00:46)
[2024-02-22] MEDS ORDERED: HYDROcodone-ACET 5/325MG TAB PO PRN (03:30)
[2024-02-22] MEDS ORDERED: ACETAMINOPHEN 325 MG TAB PO PRN (03:30)
[2024-02-22] MEDS ORDERED: DOCUSATE SOD 100 MG CAP PO PRN (03:30)
[2024-02-22] MEDS: ASPirin 81 mg TAB PO ONE (03:30)
[2024-02-22] MEDS ORDERED: VANCOMYCIN PER PHARMACY 0 MG IV SCH (03:30)
[2024-02-22 04:05] LABS: Urine Bacteria FEW /hpf (None Seen); Urine Blood Negative /uL (Negative); Urine Clarity Clear (Clear); Urine Color Yellow (Yellow); Urine Hyaline Cast FEW /lpf (0 - 2); Urine Mucus FEW (None Seen); Urine Protein, UAD Negative (Negative); Urine Specific Gravity 1.013 (1.001-1.035); Urine Urobilinogen Normal (Negative); Urine WBC <1 /hpf (0 - 5)
[2024-02-22] MEDS: FLEET ENEMA(ADULT) 135 ML PR ONE (04:30)
[2024-02-22] MEDS ORDERED: NITROGLYCERIN 0.4 MG SL TAB SL PRN (04:30)
[2024-02-22] MEDS: KETAMINE 50mg/ML 10ml Vial (500mg/10ml) IV ONE (05:00)
[2024-02-22 05:29] LABS: Basophils # (auto) 0 10 ^3/uL (0-0.2); Basophils % (auto) 0.1 % (0.0-2.0); Eosinophils # (auto) 0 10 ^3/uL (0-0.8); Hematocrit 53.4 % (36.0-46.0); Hemoglobin 17.6 g/dL (12.2-16.2); Lymphocytes # (auto) 0.9 10 ^3/uL (0.4-5.4); Lymphocytes % (auto) 4.4 % (10.0-50.0); Mean Corpuscular Hemoglobin 32.4 pg (28.0-32.0); Mean Corpuscular Hgb Conc. 32.9 g/dL (32.0-36.0); Mean Corpuscular Volume 98.4 fL (80.0-100.0); Monocytes # (auto) 0.6 10 ^3/uL (0-1.3); Neutrophils # (auto) 19.9 10 ^3/uL (1.6-8.6); Neutrophils % (auto) 92.5 % (37.0-80.0); Red Blood Cells 5.43 10^6/uL (4.0-5.20); Red Cell Distribution Width 15.2 % (11.8-14.3); White Blood Cell 21.5 10^3/uL (4.4-10.8)
[2024-02-22] MEDS: NOREPINEPHRINE 8 MG/250ML KIT 250 ML IV SCH (05:30)
[2024-02-22 05:42] LABS: Alanine Aminotransferase 17 U/L (7-40); Albumin 2.8 g/dL (3.2-4.8); Alkaline Phosphatase 122 U/L (46-116); Anion Gap 15 (5-15); Aspartate Aminotransferase 12 U/L (13-40); BUN/Creatinine Ratio 21.1 (10.0-20.0); Bilirubin, Total 1.3 mg/dL (0.2-1.0); Blood Urea Nitrogen 26 mg/dL (9-23); Calcium 7.9 mg/dL (8.7-10.4); Carbon Dioxide 19 mmol/L (20-30); Chloride 106 mmol/L (98-107); Glucose 273 mg/dL (74-106); Potassium 4.6 mmol/L (3.5-5.1); Sodium 140 mmol/L (136-145); Total Protein 4.7 g/dL (5.7-8.2)
[2024-02-22] MEDS: dilTIAZem HCL 60 MG TAB PO SCH (06:00)
[2024-02-22] MEDS: SODIUM CHLOR 0.9% PF (SALINE LOCK) 10ML VIAL/SYR IV SCH (06:00)
[2024-02-22] MEDS: VANCOMYCIN 1GM/200ML 200 ML IV ONE (06:37)
[2024-02-22] MEDS: dilTIAZem 125mg/125ml BAG KIT 125 ML IV ONE (07:12)
[2024-02-22] MEDS ORDERED: dilTIAZem 125mg/125ml BAG KIT 100 ML IV SCH (07:15)
[2024-02-22 07:30] VITALS: PULSE 108; RESP 21; O2SAT 96
[2024-02-22] MEDS: ONDANSETRON HCL 4 MG/2 ML VIAL IV PRN (09:32)
[2024-02-22] MEDS: methylPREDNISolone SOD SUCC 40 MG/ML VL IV SCH (10:16)
[2024-02-22] MEDS: FUROSEMIDE 20 MG/2 ML VIAL IV SCH (10:16)
[2024-02-22] MEDS: FAMOTIDINE (10MG/ML) 2ML VL IV SCH (10:19)
[2024-02-22] MEDS: CARVEDILOL 3.125 MG TAB PO SCH (10:39)
[2024-02-22] MEDS ORDERED: SODIUM CHLORIDE 0.9% 1,000 ML IV SCH (11:00)
[2024-02-22] MEDS ORDERED: SODIUM CHLORIDE 0.9% 1,000 ML IV ONE (11:15)
[2024-02-22 11:20] LABS: Magnesium 2.2 mg/dL (1.6-2.6)
[2024-02-22] MEDS: SODIUM CHLORIDE 0.9% 1,000 ML IV ONE (11:21)
[2024-02-22 11:27] LABS: Chloride 106 mmol/L (98-107); Potassium 4.5 mmol/L (3.5-5.1); Sodium 136 mmol/L (136-145)
[2024-02-22 11:28] LABS: Anion Gap 17 (5-15); Calcium 8.1 mg/dL (8.5-10.1); Carbon Dioxide 13 mmol/L (20-30)
[2024-02-22] MEDS: METOPROLOL TARTRATE 25 MG TAB PO ONE (11:30)
[2024-02-22] MEDS: ENOXAPARIN SOD 100 MG/1 ML SYRINGE SC ONE (11:31)
[2024-02-22 11:33] LABS: BUN/Creatinine Ratio 17.8 (10.0-20.0); Blood Urea Nitrogen 28 mg/dL (9-23); Glucose 294 mg/dL (74-106)
[2024-02-22] MEDS ORDERED: DEXTROSE (50%) 50ML SYRG IV PRN (13:15)
[2024-02-22] MEDS: metroNIDAZOLE 500MG/100ML 100 ML IV SCH (13:31)
[2024-02-22] MEDS ORDERED: levoFLOXacin 500MG 100 ML IV ONE (14:00)
[2024-02-22] MEDS: ENOXAPARIN SOD 80 MG/0.8ML SYRINGE SC ONE (15:45)
[2024-02-22] MEDS: METOPROLOL TARTRATE 25 MG TAB ONE (15:45)
[2024-02-22] MEDS: levoFLOXacin 500MG 100 ML IV ONE (15:46)
[2024-02-22] MEDS: metroNIDAZOLE 500MG/100ML 100 ML IV ONE (15:46)
[2024-02-22] MEDS: ACCU-CHEK COMFORT CURVE STRIP VI SCH (17:49)
[2024-02-22] MEDS: InsuLIN REG 1unit/0.01ml Soln (100units/ml) SC SCH ×2 (18:10→22:00)
[2024-02-22] MEDS: ENOXAPARIN SOD 100 MG/1 ML SYRINGE SC SCH (21:55)
[2024-02-22] MEDS: MAGNESIUM OXIDE 400 MG TAB PO SCH (21:57)
[2024-02-22] MEDS: ATORVASTATIN 20 MG TAB PO SCH (21:57)
[2024-02-22] MEDS: METOPROLOL TARTRATE 25 MG TAB PO SCH (21:58)
[2024-02-22] MEDS ORDERED: levoFLOXacin 500MG 100 ML IV SCH (22:00)
[2024-02-22 23:22] VITALS: BP 119/82; PULSE 16; PULSE 76; RESP 16; TEMP 97.3; O2SAT 92
[2024-02-23] VITALS (20 sets, daily range): BP systolic 110–134; BP diastolic 68–98; PULSE 68–163; RESP 15–28; TEMP 96.8–98; O2SAT 92–98
[2024-02-23] MEDS: SODIUM CHLORIDE 0.9% 250 ML IV SCH (01:00)
[2024-02-23] MEDS: dilTIAZem 25 MG/5 ML VIAL IV ONE ×2 (04:17→23:43)
[2024-02-23 06:47] LABS: Basophils # (auto) 0 10 ^3/uL (0-0.2); Basophils % (auto) 0.1 % (0.0-2.0); Eosinophils # (auto) 0 10 ^3/uL (0-0.8); Hematocrit 50.5 % (36.0-46.0); Hemoglobin 16.7 g/dL (12.2-16.2); Lymphocytes # (auto) 1.2 10 ^3/uL (0.4-5.4); Lymphocytes % (auto) 5.7 % (10.0-50.0); Mean Corpuscular Hemoglobin 32.9 pg (28.0-32.0); Mean Corpuscular Hgb Conc. 33.1 g/dL (32.0-36.0); Mean Corpuscular Volume 99.3 fL (80.0-100.0); Monocytes # (auto) 1.4 10 ^3/uL (0-1.3); Monocytes % (auto) 6.6 % (0.0-12.0); Neutrophils # (auto) 18.9 10 ^3/uL (1.6-8.6); Neutrophils % (auto) 87.6 % (37.0-80.0); Nucleated Red Blood Cells % 0.1 %; Red Blood Cells 5.08 10^6/uL (4.0-5.20); White Blood Cell 21.5 10^3/uL (4.4-10.8)
[2024-02-23] MEDS: METOPROLOL TARTRATE 1MG/1ML-5ML VIAL IV ONE ×2 (07:25→11:36)
[2024-02-23] MEDS: SODIUM CHLORIDE 0.9% 1,000 ML IV SCH ×2 (08:30→11:30)
[2024-02-23] MEDS: MAGNESIUM SULFATE 1GM/100ML 100 ML IV SCH (09:00)
[2024-02-23 09:08] LABS: Alanine Aminotransferase 16 U/L (7-40); Albumin 2.8 g/dL (3.2-4.8); Alkaline Phosphatase 107 U/L (46-116); Anion Gap 17.00001 (5-15); Aspartate Aminotransferase 19 U/L (13-40); BUN/Creatinine Ratio 16.2 (10.0-20.0); Blood Urea Nitrogen 32 mg/dL (9-23); Calcium 8.5 mg/dL (8.7-10.4); Chloride 106 mmol/L (98-107); Glucose 173 mg/dL (74-106); Magnesium 2.5 mg/dL (1.6-2.6); Potassium 5.1 mmol/L (3.5-5.1); Sodium 133 mmol/L (136-145)
[2024-02-23 09:09] LABS: Bilirubin, Total 0.8 mg/dL (0.2-1.0); Total Protein 4.8 g/dL (5.7-8.2)
[2024-02-23] MEDS: DIGOXIN (250MCG/ML) 2 ML AMPULE IV SCH (09:22)
[2024-02-23 09:28] LABS: Carbon Dioxide < 10 mmol/L (20-30)
[2024-02-23] MEDS: ASPirin 81 mg TAB PO SCH (09:46)
[2024-02-23] MEDS: levoFLOXacin 500MG 100 ML IV ONE (09:50)
[2024-02-23] MEDS: methylPREDNISolone SOD SUCC 40 MG/ML VL IV ONE (10:00)
[2024-02-23] MEDS ORDERED: SODIUM BICARB 50mEq/50ml Vial 150 ML in D5W 5% 1,000 ML IV SCH (10:15)
[2024-02-23] MEDS: DIGOXIN (250MCG/ML) 2 ML AMPULE IV ONE (10:30)
[2024-02-23] MEDS: SODIUM BICARB 8.4% 50Meq/50ml SYR Vial IV ONE (10:33)
[2024-02-23 11:32] LABS: Lactic Acid w/Reflex 4.5 mmol/L (0.4-2.0)
[2024-02-23] MEDS: VANCOMYCIN 750mg/150ml 150 ML IV ONE (11:42)
[2024-02-23] MEDS: MORPHINE SULFATE INJ 2 MG/ml SYRG IV PRN (12:15)
[2024-02-23] MEDS: SODIUM BICARB 50mEq/50ml Vial 150 ML in D5W 5% 1,000 ML IV SCH (13:02)
[2024-02-23] MEDS: AMIODARONE BOLUS KIT 100 ML IV ONE (21:07)
[2024-02-23] MEDS: AMIODARONE BOLUS KIT 50 ML IV ONE (21:16)
[2024-02-23] MEDS: ENOXAPARIN SOD 80 MG/0.8ML SYRINGE SC SCH (22:00)
[2024-02-23] MEDS: PHENYLEPHRINE IV 250 ML IV ONE (23:15)
[2024-02-24] VITALS (96 sets, daily range): BP systolic 86–132; BP diastolic 35–87; PULSE 67–147; RESP 13–37; TEMP 97.1–98.7; O2SAT 87–97
[2024-02-24] MEDS: dilTIAZem 25 MG/5 ML VIAL IV ONE (00:13)
[2024-02-24] MEDS: dilTIAZem 125mg/125ml BAG KIT 125 ML IV SCH ×2 (00:14→16:50)
[2024-02-24 07:19] LABS: Basophils # (auto) 0 10 ^3/uL (0-0.2); Basophils % (auto) 0.1 % (0.0-2.0); Eosinophils # (auto) 0 10 ^3/uL (0-0.8); Hematocrit 44.5 % (36.0-46.0); Hemoglobin 14.8 g/dL (12.2-16.2); Lymphocytes # (auto) 1.1 10 ^3/uL (0.4-5.4); Mean Corpuscular Hemoglobin 32.6 pg (28.0-32.0); Mean Corpuscular Hgb Conc. 33.2 g/dL (32.0-36.0); Monocytes # (auto) 0.5 10 ^3/uL (0-1.3); Monocytes % (auto) 2.8 % (0.0-12.0); Neutrophils % (auto) 91.1 % (37.0-80.0); Nucleated Red Blood Cells % 0.2 %; Red Blood Cells 4.54 10^6/uL (4.0-5.20); Red Cell Distribution Width 14.7 % (11.8-14.3); White Blood Cell 18.7 10^3/uL (4.4-10.8)
[2024-02-24 09:24] LABS: Chloride 98 mmol/L (98-107); Potassium 4.4 mmol/L (3.5-5.1); Sodium 130 mmol/L (136-145)
[2024-02-24 09:26] LABS: Anion Gap 10 (5-15); Calcium 7.7 mg/dL (8.7-10.4); Carbon Dioxide 22 mmol/L (20-30)
[2024-02-24 09:31] LABS: Blood Urea Nitrogen 37 mg/dL (9-23); Glucose 169 mg/dL (74-106)
[2024-02-24 09:32] LABS: Magnesium 2.3 mg/dL (1.6-2.6)
[2024-02-24] MEDS ORDERED: levoFLOXacin 250MG 50 ML IV SCH (10:00)
[2024-02-24] MEDS: CEFEPIME 1GM/ 50ML 50 ML IV SCH (10:42)
[2024-02-24] MEDS: DIGOXIN (250MCG/ML) 2 ML AMPULE IV SCH (11:09)
[2024-02-24] MEDS ORDERED: VANCOMYCIN PER PHARMACY 0 MG IV SCH (11:45)
[2024-02-24] MEDS ORDERED: TPN PER PHARMACY 0 ML IV SCH (11:45)
[2024-02-24 11:59] LABS: Base Excess -0.3 mmol/L (-2.0-2.0)
[2024-02-24] MEDS: ACCU-CHEK COMFORT CURVE STRIP VI SCH (12:00)
[2024-02-24] MEDS: InsuLIN REG 1unit/0.01ml Soln (100units/ml) SC SCH (12:00)
[2024-02-24] MEDS ORDERED: DEXTROSE (50%) 50ML SYRG IV SCH (12:00)
[2024-02-24] MEDS: SODIUM BICARB 50mEq/50ml Vial 150 ML in D5W 5% 1,000 ML IV SCH (12:19)
[2024-02-24] MEDS: PANTOPRAZOLE 40 MG/10 ML VIAL INJ IV ONE (12:40)
[2024-02-24 14:01] LABS: Lactic Acid w/Reflex 4.8 mmol/L (0.4-2.0)
[2024-02-24] MEDS: MORPHINE SULFATE INJ 2 MG/ml SYRG IV PRN (16:33)
[2024-02-24] MEDS: VANCOMYCIN 500 MG in D5W 5% 100 ML IV ONE (16:48)
[2024-02-24] MEDS ORDERED: BISO5TAB44 PO (17:33)
[2024-02-24] MEDS ORDERED: DILT180C55 PO (17:33)
[2024-02-24] MEDS ORDERED: EPLE25TA4 PO (17:33)
[2024-02-24] MEDS ORDERED: AZIT-43 PO (17:33)
[2024-02-24] MEDS ORDERED: DABI1CAP PO (17:34)
[2024-02-24] MEDS: TPN PER PHARMACY IV NR (19:57)
[2024-02-25] VITALS (105 sets, daily range): BP systolic 58–137; BP diastolic 25–84; PULSE 60–126; RESP 11–28; TEMP 96.5–98.5; O2SAT 70–100
[2024-02-25 05:46] LABS: Alanine Aminotransferase 18 U/L (7-40); Albumin 1.8 g/dL (3.2-4.8); Alkaline Phosphatase 102 U/L (46-116); Anion Gap 9 (5-15); Aspartate Aminotransferase 25 U/L (13-40); BUN/Creatinine Ratio 23.8 (10.0-20.0); Bilirubin, Total 0.5 mg/dL (0.2-1.0); Calcium 7.8 mg/dL (8.7-10.4); Carbon Dioxide 32 mmol/L (20-30); Chloride 89 mmol/L (98-107); Glucose 225 mg/dL (74-106); Magnesium 2.3 mg/dL (1.6-2.6); Phosphorus 5.6 mg/dL (2.4-5.1); Potassium 3.9 mmol/L (3.5-5.1); Sodium 130 mmol/L (136-145); Total Protein 3.2 g/dL (5.7-8.2)
[2024-02-25 06:14] LABS: Lactic Acid w/Reflex 4.6 mmol/L (0.4-2.0)
[2024-02-25 06:22] LABS: Blood Urea Nitrogen 58 mg/dL (9-23)
[2024-02-25 06:25] LABS: Hemoglobin 12.2 g/dL (12.2-16.2); Mean Corpuscular Hemoglobin 32.4 pg (28.0-32.0); Mean Corpuscular Hgb Conc. 33.1 g/dL (32.0-36.0); Mean Corpuscular Volume 98.1 fL (80.0-100.0); Red Blood Cells 3.77 10^6/uL (4.0-5.20); Red Cell Distribution Width 15.1 % (11.8-14.3); White Blood Cell 16.5 10^3/uL (4.4-10.8)
[2024-02-25 06:38] LABS: Basophils % (manual) 0 (0.0-2.0); Blast Cells 0; Eosinophils % (manual) 0 (0-7); Myelocytes % 0; Promyelocytes % 0; Reactive Lymphocytes 0
[2024-02-25 07:43] LABS: Band Neutrophils % (manual) 5; Lymphocytes % (manual) 4 (10.0-50.0); Metamyelocytes % 1; Monocytes % (manual) 3 (0-12); Platelet Estimate Decreased
[2024-02-25] MEDS: INSULIN LANTUS (GLARGINE) 1 /0.01ml (100units/ml) SC SCH (10:00)
[2024-02-25] MEDS ORDERED: SODIUM BICARB 50mEq/50ml Vial 150 ML in D5W 5% 1,000 ML IV SCH (10:00)
[2024-02-25] MEDS: PANTOPRAZOLE 40 MG/10 ML VIAL INJ IV SCH (10:37)
[2024-02-25 10:42] LABS: Hematocrit 34.6 % (36.0-46.0); Hemoglobin 11.8 g/dL (12.2-16.2); Mean Corpuscular Hemoglobin 33.3 pg (28.0-32.0); Mean Corpuscular Volume 98.1 fL (80.0-100.0); Red Blood Cells 3.53 10^6/uL (4.0-5.20); Red Cell Distribution Width 14.7 % (11.8-14.3); White Blood Cell 15.8 10^3/uL (4.4-10.8)
[2024-02-25 10:50] LABS: Band Neutrophils % (manual) 0; Basophils % (manual) 0 (0.0-2.0); Blast Cells 0; Eosinophils % (manual) 0 (0-7); Myelocytes % 0; Promyelocytes % 0; Reactive Lymphocytes 0
[2024-02-25 11:25] LABS: Chloride 88 mmol/L (98-107); Potassium 3.9 mmol/L (3.5-5.1); Sodium 130 mmol/L (136-145)
[2024-02-25 11:26] LABS: Anion Gap 6 (5-15); Calcium 7.3 mg/dL (8.5-10.1); Carbon Dioxide 36 mmol/L (20-30)
[2024-02-25] MEDS: SODIUM CHLORIDE 0.9% 1,000 ML IV SCH (11:26)
[2024-02-25] MEDS: INSULIN LANTUS (GLARGINE) 1 /0.01ml (100units/ml) SC ONE (11:26)
[2024-02-25 11:31] LABS: BUN/Creatinine Ratio 32.5 (10.0-20.0); Glucose 226 mg/dL (74-106)
[2024-02-25 11:42] LABS: Blood Urea Nitrogen 75 mg/dL (9-23)
[2024-02-25 12:29] LABS: Partial Thromboplastin Time 38.7 SEC (24.5-34.5)
[2024-02-25 12:46] LABS: INR > 8.0 (0.9-1.15)
[2024-02-25 12:55] LABS: Base Excess 7.1 mmol/L (-2.0-2.0)
[2024-02-25 13:55] LABS: Lymphocytes % (manual) 10 (10.0-50.0); Metamyelocytes % 2; Monocytes % (manual) 1 (0-12); Platelet Estimate Decreased
[2024-02-25] MEDS: MIDAZOLAM DRIP 50 mg/50mL 50 ML IV ONE (14:10)
[2024-02-25] MEDS: NOREPINEPHRINE 8 MG/250ML KIT 250 ML IV ONE (14:10)
[2024-02-25] MEDS: ROCURONIUM 10MG/ML 10ML VIAL IV ONE (14:10)
[2024-02-25] MEDS: ETOMIDATE (2MG/ML) 20ML VIAL IV ONE (14:10)
[2024-02-25] MEDS ORDERED: VASOPRESSIN 20 UNITS in SODIUM CHL 0.9% 99 ML IV SCH (14:45)
[2024-02-25] MEDS ORDERED: NOREPINEPHRINE 8 MG/250ML KIT 250 ML IV SCH (14:45)
[2024-02-25] MEDS ORDERED: PHENYLEPHRINE IV 250 ML IV SCH (14:45)
[2024-02-25] MEDS: LIDOCAINE 2% (LOCAL ANESTH.) PF 5ml SDV ONE (15:38)
[2024-02-25 16:29] LABS: Base Excess 9.2 mmol/L (-2.0-2.0)
[2024-02-25] MEDS: EPINEPHrine HCL 250 ML IV SCH (16:30)
[2024-02-25] MEDS: PHENYLEPHRINE IV 250 ML IV SCH (16:30)
[2024-02-25] MEDS: LIDOCAINE 2% (LOCAL ANESTH.) PF 5ml SDV IJ ONE (17:45)
[2024-02-25 18:30] LABS: Sodium Urine < 10 mmol/L (40-220)
[2024-02-25 18:34] LABS: Protein, Urine 86.3 mg/dL (0.0-11.9)
[2024-02-25 18:37] LABS: Creatinine, Urine 44.98 mg/dL (30.0-125.0); Urine Protein/Creatinine Ratio 1.92
[2024-02-25] MEDS: NOREPINEPHRINE 8 MG/250ML KIT 250 ML IV SCH (19:20)
[2024-02-25] MEDS: fentaNYL Drip 2500mCg/250mlNS 250 ML IV ONE (19:49)
[2024-02-25] MEDS: VASOPRESSIN 20 UNIT/ML ONE (19:50)
[2024-02-25] MEDS: TPN PER PHARMACY IV NR (20:08)
[2024-02-25] MEDS: MIDAZOLAM DRIP 50 mg/50mL 50 ML IV SCH (20:32)
[2024-02-25 21:51] LABS: Hematocrit 29.7 % (36.0-46.0); Hemoglobin 10.1 g/dL (12.2-16.2)
[2024-02-26] VITALS (112 sets, daily range): BP systolic 74–207; BP diastolic 38–117; PULSE 82–115; RESP 14–15; TEMP 96.5–98.5; O2SAT 93–100
[2024-02-26] MEDS: VASOPRESSIN 20 UNIT/ML ONE (03:26)
[2024-02-26] MEDS: VASOPRESSIN 20 UNITS in SODIUM CHL 0.9% 99 ML IV SCH (03:32)
[2024-02-26] MEDS: fentaNYL Drip 2500mCg/250mlNS 250 ML IV SCH (09:01)
[2024-02-26 09:03] LABS: Base Excess 5.3 mmol/L (-2.0-2.0)
[2024-02-26 09:27] LABS: Alanine Aminotransferase 26 U/L (7-40); Albumin 1.7 g/dL (3.2-4.8); Alkaline Phosphatase 88 U/L (46-116); Anion Gap 5 (5-15); Aspartate Aminotransferase 30 U/L (13-40); BUN/Creatinine Ratio 36.6 (10.0-20.0); Bilirubin, Total 0.5 mg/dL (0.2-1.0); Blood Urea Nitrogen 74 mg/dL (9-23); Calcium 7.3 mg/dL (8.7-10.4); Carbon Dioxide 30 mmol/L (20-30); Chloride 96 mmol/L (98-107); Glucose 210 mg/dL (74-106); Magnesium 2.2 mg/dL (1.6-2.6); Phosphorus 3.8 mg/dL (2.4-5.1); Potassium 3.5 mmol/L (3.5-5.1); Sodium 131 mmol/L (136-145)
[2024-02-26 09:39] LABS: Hematocrit 23.6 % (36.0-46.0); Red Cell Distribution Width 14.9 % (11.8-14.3)
[2024-02-26 09:41] LABS: Mean Corpuscular Hemoglobin 33.1 pg (28.0-32.0); Mean Corpuscular Hgb Conc. 33.8 g/dL (32.0-36.0); Mean Corpuscular Volume 97.9 fL (80.0-100.0); Red Blood Cells 2.41 10^6/uL (4.0-5.20); White Blood Cell 14.8 10^3/uL (4.4-10.8)
[2024-02-26 09:44] LABS: Basophils % (manual) 0 (0.0-2.0); Blast Cells 0; Eosinophils % (manual) 0 (0-7); Myelocytes % 0; Promyelocytes % 0; Reactive Lymphocytes 0
[2024-02-26 11:27] LABS: INR > 8.0 (0.9-1.15)
[2024-02-26] MEDS: POTASSIUM CHL 20MEQ/100ML 100 ML IV ONE (12:18)
[2024-02-26 13:34] LABS: Band Neutrophils % (manual) 14; Lymphocytes % (manual) 17 (10.0-50.0); Metamyelocytes % 1; Monocytes % (manual) 8 (0-12)
[2024-02-26 13:35] LABS: Platelet Estimate Decreased
[2024-02-26] MEDS: VANCOMYCIN 750mg/150ml 150 ML IV ONE (14:28)
[2024-02-26] MEDS: TPN PER PHARMACY IV NR (20:57)
[2024-02-27] VITALS (78 sets, daily range): BP systolic 85–138; BP diastolic 33–73; PULSE 76–124; RESP 14–27; TEMP 96.5–97.8; O2SAT 93–98
[2024-02-27] MEDS: NOREPINEPHRINE BITARTRATE 32 MG in SODIUM CHL 0.9% 218 ML IV SCH (00:42)
[2024-02-27 03:58] LABS: Hemoglobin 8.3 g/dL (12.2-16.2)
[2024-02-27 04:02] LABS: Hematocrit 24.2 % (36.0-46.0); Mean Corpuscular Hemoglobin 32.2 pg (28.0-32.0); Mean Corpuscular Hgb Conc. 34.1 g/dL (32.0-36.0); Mean Corpuscular Volume 94.4 fL (80.0-100.0); Red Blood Cells 2.57 10^6/uL (4.0-5.20); White Blood Cell 15.3 10^3/uL (4.4-10.8)
[2024-02-27 04:12] LABS: Basophils % (manual) 0 (0.0-2.0); Blast Cells 0; Eosinophils % (manual) 0 (0-7); Metamyelocytes % 0; Myelocytes % 0; Promyelocytes % 0; Reactive Lymphocytes 0
[2024-02-27 04:16] LABS: Alanine Aminotransferase 24 U/L (7-40); Albumin 2.1 g/dL (3.2-4.8); Alkaline Phosphatase 80 U/L (46-116); Anion Gap 5 (5-15); Aspartate Aminotransferase 22 U/L (13-40); BUN/Creatinine Ratio 32.5 (10.0-20.0); Calcium 7.8 mg/dL (8.7-10.4); Carbon Dioxide 27 mmol/L (20-30); Chloride 100 mmol/L (98-107); Glucose 214 mg/dL (74-106); Magnesium 2.2 mg/dL (1.6-2.6); Phosphorus 2.9 mg/dL (2.4-5.1); Potassium 3.5 mmol/L (3.5-5.1); Sodium 132 mmol/L (136-145)
[2024-02-27 04:17] LABS: Bilirubin, Total 0.6 mg/dL (0.2-1.0); Total Protein 3.6 g/dL (5.7-8.2)
[2024-02-27 04:24] LABS: Blood Urea Nitrogen 51 mg/dL (9-23)
[2024-02-27 05:07] LABS: Band Neutrophils % (manual) 12; Lymphocytes % (manual) 7 (10.0-50.0); Monocytes % (manual) 7 (0-12)
[2024-02-27 05:08] LABS: Platelet Estimate Decreased
[2024-02-27 07:42] LABS: Base Excess 1.4 mmol/L (-2.0-2.0)
[2024-02-27] MEDS: POTASSIUM CHL 20MEQ/100ML 100 ML IV ONE (10:37)
[2024-02-27 11:41] LABS: Prothrombin Time 59.1 sec (9.3-11.8)
[2024-02-27 12:10] LABS: INR 6.35 (0.9-1.15)
[2024-02-27] MEDS: VANCOMYCIN 750mg/150ml 150 ML IV SCH (12:17)
[2024-02-27] MEDS ORDERED: LORazepam 2MG/ML-1ML VIAL IV PRN (17:00)
[2024-02-27] MEDS: MORPHINE SULFATE INJ 2 MG/ml SYRG IV PRN (17:46)
[2024-02-27] MEDS ORDERED: TPN PER PHARMACY IV NR (20:00)
== END 2024-02-27 23:41 | DRG 871 ==
LOC: EDBD 17:31 → ER 17:31 → OVERFLOW 02-22 04:23 → TELE-EAST 02-22 23:30 → ICU CENTRL 02-23 14:11 → DOU IN ICU 02-23 14:22 → ICU CENTRL 02-24 00:12 → ICU WEST 02-26 20:06
PROVIDERS: ADMIT Nurse Practitioner Family; ATTEND Internal Medicine
PROC: 03HY32Z Insertion of Monitoring Device into Upper Artery, Percutaneous Approach (ICD-10-PCS; 2024-02-22)
PROC: 0DH67UZ Insertion of Feeding Device into Stomach, Via Natural or Artificial Opening (ICD-10-PCS; 2024-02-23)
PROC: 5A1945Z Respiratory Ventilation, 24-96 Consecutive Hours (ICD-10-PCS; principal; 2024-02-25)
PROC: 0BH17EZ Insertion of Endotracheal Airway into Trachea, Via Natural or Artificial Opening (ICD-10-PCS; 2024-02-25)
PROC: 30233N1 Transfusion of Nonautologous Red Blood Cells into Peripheral Vein, Percutaneous Approach (ICD-10-PCS; 2024-02-25)
PROC: 30233L1 Transfusion of Nonautologous Fresh Plasma into Peripheral Vein, Percutaneous Approach (ICD-10-PCS; 2024-02-26)
PROC: 30233K1 Transfusion of Nonautologous Frozen Plasma into Peripheral Vein, Percutaneous Approach (ICD-10-PCS; 2024-02-26)
DX: A41.9 Sepsis, unspecified organism (principal); J96.01 Acute respiratory failure with hypoxia; R65.21 Severe sepsis with septic shock; N17.0 Acute kidney failure with tubular necrosis; I48.20 Chronic atrial fibrillation, unspecified; I13.0 Hypertensive heart and chronic kidney disease with heart failure and stage 1 through stage 4 chronic kidney disease, or unspecified chronic kidney disease; E87.4 Mixed disorder of acid-base balance; D68.9 Coagulation defect, unspecified; G93.49 Other encephalopathy; K57.32 Diverticulitis of large intestine without perforation or abscess without bleeding; I50.32 Chronic diastolic (congestive) heart failure; Z66 Do not resuscitate; K59.00 Constipation, unspecified; N18.9 Chronic kidney disease, unspecified; K44.9 Diaphragmatic hernia without obstruction or gangrene; E66.9 Obesity, unspecified; I25.10 Atherosclerotic heart disease of native coronary artery without angina pectoris; Z79.899 Other long term (current) drug therapy; Z85.820 Personal history of malignant melanoma of skin; Z88.0 Allergy status to penicillin; Z88.8 Allergy status to other drugs, medicaments and biological substances; Z68.33 Body mass index [BMI] 33.0-33.9, adult
CPT/HCPCS: 31500; 36415; 36600; 70450; 71045; 71250; 74176; 80048; 80053; 80061; 80162; 80202; 81001; 82270; 82306; 82570; 82805; 82962; 83036; 83605; 83735; 83880; 83970; 84100; 84156; 84300; 84443; 84484; 85007; 85014; 85018; 85025; 85027; 85379; 85610; 85730; 86850; 86900; 86901; 86920; 87040; 87070; 87077; 87086; 87205; 93005; 93306; 94002; 94003; C9113; G0378; J1815; J1956; J2001; J2250; J2405; J3480; J3490; J7060; J7131